=== PATIENT | female | born 1990 | race Caucasian/White ===

== ENCOUNTER 2023-02-22 07:55 | Inpatient (IN) ==
[2023-02-22] MEDS ORDERED: LIDOCAINE 1% LOCAL 20 ML VIAL INFIL PRN (08:06)
[2023-02-22] MEDS ORDERED: OXYTOCIN 30 UNITS/500 ML BAG IV PRN ×2 (08:06→08:07)
[2023-02-22] MEDS: LACTATED RINGER'S 1,000 ML IV PRN ×2 (09:24→13:55)
--- NOTE | 2023-02-22 09:38 | Labor Progress Brief Note ---
Date of Service February 22, 2023 Subjective 32yo at 39w6d for IOL due to A2GDM. No OB c/o this morning. Assessment & Plan (1) Insulin controlled gestational diabetes mellitus (GDM) during : Plan: Will check FSBG Q2h, can initiate insulin protocol prn results >130. IOL with pitocin, epidural on request, AROM when able. Admission and Anticipated Discharge Date Admission Date: February 22, 2023 Physical Exam Constitutional: WD/WN, vitals as above Eyes: PERRL, conjunctivae normal, anicteric sclerae ENMT: external ear and nose normal, oropharynx normal Neck: supple Respiratory: normal respiratory effort and able to speak in complete sentences; no respiratory distress Cardiovascular: Rate/Rhythm: regular rate and regular rhythm Extremities: + pedal edema Gastrointestinal (Abdomen): Gravid / AGA, nontender Musculoskeletal: no cyanosis or clubbing, extremities motor strength 5/5 Skin: no rashes, warm and dry Psychiatric: A+Ox3, euthymic affect Genitourinary: Speculum/Bimanual Exam: no vaginal lesions, no vaginal bleeding and uterus nontender OB Exam Abdomen: + vertex and + estimated weight (7) Manual OB Exam: + cervical dilation 3 cm, + cervical effacement 70%, + station -2 and + amniotic fluid (No leaking evident) OB Exam Monitor Tracing: + external FHT monitor used, + external uterine monitor used and + category I Lymphatic: no cervical or axillary lymphadenopathy Results & Data Vital Signs (Past 12 Hours) Vital Signs Temp Pulse Resp BP 02/22/23 08:23 98.6 F 110 H 18 130/75 02/22/23 08:09 110 H 130/75 Coding Level of Care Code None Diagnoses Insulin controlled gestational diabetes mellitus (GDM) during O24.414
[2023-02-22 10:05] LABS: Hemoglobin 13.1 g/dl (12.0-16.0); Mean Corpuscular Hemoglobin 28.6 pg (25.0-34.0); Mean Corpuscular Hgb Conc 33.6 g/dL (32.0-36.0); Mean Corpuscular Volume 85.2 fL (80.0-100.0); Mean Platelet Volume 9.6 fL (9.4-12.4); Platelet Count 307 K/uL (130-400); RDW Coefficient of Variation 15.1 % (11.5-14.5); RDW Standard Deviation 46.6 fL (36.4-46.3); Red Blood Count 4.58 M/uL (4.20-5.40); White Blood Count 6.05 K/ul (4.8-10.8)
[2023-02-22] MEDS ORDERED: fentaNYL citrate PF 100 MCG/2 ML VIAL ONE (12:47)
[2023-02-22] MEDS ORDERED: SODIUM CHLORIDE 0.9% PF INJ 10 ML VIAL ONE (12:47)
[2023-02-22] MEDS ORDERED: ePHEDrine sulfate 50 MG/ML AMP ONE (12:47)
[2023-02-22] MEDS ORDERED: LIDOCAINE 2%/EPINEPHRINE 1:200,000 20 ML PF ONE (12:47)
[2023-02-22] MEDS ORDERED: BUPIVACAINE 0.25% PF 30 ML VIAL ONE (12:47)
[2023-02-22] MEDS ORDERED: fentaNYL 2MCG/ML ROPIVACAINE 1.25MG/ML 100 ML BAG EPI ONE (12:48)
--- NOTE | 2023-02-22 13:07 | Anesthesiology Consultation ---
Date of Service February 22, 2023 Assessment & Plan Chart Review Chart Review: Acceptable Risk for Labor Epidural Consults Requested none ASA ASA2 Proposed Anesthesia Anesthesia Type: Labor Epidural Risk / Benefits Reviewed With: PT / POA / Parent / Guardian, Accepts Plan and Informed Consent Obtained History Height/Weight Height: 5 ft 6 in Weight: 94.347 kg Allergies Allergy/AdvReac Type Severity Reaction Status Date / Time No Known Allergies Allergy Verified 02/21/23 13:52 Medications Home Medications Medication Instructions Recorded Confirmed Last Taken prenat.vits,ector,vkm-roif-lokyx 1 tab PO DAILY 07/19/22 02/22/23 02/21/23 21:00 acetone (urine) test (Ketone Urine #50 ea 10/05/22 02/22/23 Unknown Test strips) blood sugar diagnostic (OneTouch #150 ea 10/05/22 02/22/23 Unknown Verio test strips) blood-glucose meter (OneTouch #1 ea 10/05/22 02/22/23 Unknown Verio Reflect Meter) lancets 33 gauge (OneTouch Delica #150 ea 10/05/22 02/22/23 Unknown Lancets) pen needle, diabetic 32 gauge x #100 ea 11/28/22 02/21/23 Unknown 5/32" (BD Ultra-Fine Avis Pen Needle) breast pump #1 ea 02/16/23 02/22/23 Unknown insulin NPH isoph U-100 human 100 28 unit subcut QPM 02/22/23 02/22/23 02/21/23 21:00 unit/mL (3 mL) subcutaneous pen (Novolin N FlexPen) Active Medications Generic Name Dose Route Start Last Admin Trade Name Freq PRN Reason Stop Dose Admin Lactated Ringer's 1,000 mls @ 125 mls/hr 02/22/23 08:06 02/22/23 09:24 Lr IV 02/24/23 08:05 125 mls/hr .Q8H PRN Administration L&D Protocol Protocol Oxytocin 30 units in 500 mls @ 11 mls/hr 02/22/23 08:07 02/22/23 12:00 Pitocin IV 03/24/23 08:06 0.66 units/hr .Q24H PRN 11 mls/hr Labor Induction/Augmentation Titration Protocol 0.66 UNITS/HR Past Medical History Medical History Dysmenorrhea History of chicken pox Migraine with aura Varicella vaccination Exercise / Class Metabolic Activity II 4-5 Yardwork/Stairs/Walk up hill Past Family History Family History Father Diabetes Mother Menorrhagia Sister Breast cyst Denies family history of Ovarian cancer Prostate cancer Myocardial infarction Breast cancer Colorectal cancer Past Surgical History Surgical History S/P appendectomy 2014 Past Anesthesia History No Hx of Anesthesia Complications and No Family Hx of Anesthesia Complications History of PONV No Hx of PONV and No Hx of Motion Sickness Social History Smoking Status: Never smoker Do You Dip or Chew Tobacco: No Hx Alcohol Use: No Hx Substance Use: No Physical Exam Vital Signs Last Vital Signs Temp 98.2 F 02/22/23 11:00 Pulse 75 02/22/23 12:34 Resp 18 02/22/23 11:00 BP 119/68 02/22/23 12:34 ENMT Mouth: no dentition abnormality Thyromental Distance: > or= 3.5 Finger Breadths Mallampati Class: II Neck normal visual inspection Respiratory normal respiratory effort Auscultation: lungs clear to auscultation bilaterally Cardiovascular Rate/Rhythm: regular rate and regular rhythm Testing Laboratory Results 02/22/23 08:15 02/22/23 02/22/23 11:17 09:39 POC Glucose 77 102 H
[2023-02-22] MEDS ORDERED: fentaNYL citrate PF 100 MCG/2 ML VIAL EPI STA (13:28)
[2023-02-22] MEDS ORDERED: SODIUM CHLORIDE 0.9% PF INJ 10 ML VIAL EPI STA (13:28)
[2023-02-22] MEDS ORDERED: SODIUM CHLORIDE 0.9% PF INJ 10 ML VIAL EPI PRN (13:28)
[2023-02-22] MEDS ORDERED: LIDOCAINE 2% MPF LOCAL 5 ML VIAL EPI PRN (13:28)
[2023-02-22] MEDS ORDERED: BUPIVACAINE 0.25% PF 30 ML VIAL EPI PRN (13:28)
[2023-02-22] MEDS ORDERED: diphenhydrAMINE 50 MG/ML VIAL IV PRN (13:28)
[2023-02-22] MEDS ORDERED: ONDANSETRON INJ 2 MG/ML 2 ML VIAL IV PRN (13:28)
[2023-02-22] MEDS ORDERED: fentaNYL citrate PF 100 MCG/2 ML VIAL EPI PRN (13:28)
[2023-02-22] MEDS ORDERED: NALBUPHINE HCL INJ 10 MG/ML AMP IV PRN (13:28)
[2023-02-22] MEDS ORDERED: BUPIVACAINE 0.25% PF 30 ML VIAL EPI STA (13:28)
[2023-02-22] MEDS ORDERED: NALOXONE HCL 1 MG in SODIUM CHLORIDE 0.9% 1,000 ML IV PRN (13:28)
[2023-02-22] MEDS ORDERED: ROPIVACAINE 0.5% PF 5 MG/ML 20 ML VIAL EPI PRN (13:28)
[2023-02-22] MEDS ORDERED: fentaNYL 2MCG/ML ROPIVACAINE 1.25MG/ML 100 ML BAG EPI PRN (13:28)
[2023-02-22] MEDS ORDERED: ePHEDrine sulfate 50 MG/ML AMP IV PRN (13:28)
[2023-02-22] MEDS ORDERED: NALOXONE HCL 0.4 MG/1 ML VIAL/CARP IV PRN (13:28)
[2023-02-22] MEDS ORDERED: LIDOCAINE 2%/EPINEPHRINE 1:200,000 20 ML PF EPI STA (13:28)
--- NOTE | 2023-02-22 14:37 | Obstetrical Progress Note ---
Date of Service <Ervin Cobian MD - Last Filed: 02/23/23 06:54> February 22, 2023 Assessment & Plan <Ervin Cobian MD - Last Filed: 02/23/23 06:54> (1) Vaginal delivery: Plan 32 yo , status post vaginal delivery, of on 02/22/23, 2nd deg LAC - Pt doing well clinically. Feels well today. Eating well, voiding well, ambulating well. Pain well controlled with PRN pain meds. - Routine care -- OOB, ambulation, diet progression as tolerated Vital Signs reviewed and WNL. (Tmax at 36.7) except as noted: BP 97/62 early this morning post-delivery. Hemoglobin Reviewed. 13.1 (02/22/23) pending (today). Blood Type: A+, GBS-, Rubella Immune. Encourage ambulation, monitor and control pain with Motrin PRN, resume regular diet, monitor lochia. Breast feeding encouraged. After discharge will have 6 week follow-up with Dr. Red. <Kelsi Red MD - Last Filed: 02/23/23 07:01> (1) Vaginal delivery: Subjective <Ervin Cobian MD - Last Filed: 02/23/23 06:54> Ambulation: ambulating normally Voiding: no voiding problems Passing Gas:: Yes Diet Tolerance:: regular diet Lochia:: Small (light to moderate) Feeding Type:: breast feeding Current Pain Level(1-10): 7 (perineal region pain) Constitutional: + fatigue; no fever or no chills Respiratory: no cough or no dyspnea Cardiovascular: no chest pain or no palpitations Gastrointestinal: + constipation (has not had BM); no nausea, no vomiting or no diarrhea/loose stools Musculoskeletal: no myalgia Physical Exam <Ervin Cobian MD - Last Filed: 02/23/23 06:54> Respiratory normal respiratory effort, lungs clear to auscultation Cardiovascular RRR, no murmur, no edema Gastrointestinal (Abdomen) normal bowel sounds, soft, nontender, no hepatosplenomegaly Musculoskeletal Extremities: extremities normal to inspection (no calf pain or tenderness) Results & Data <Ervin Cobian MD - Last Filed: 02/23/23 06:54> Vital Signs (Past 12 Hours) Vital Signs Temp Pulse Resp BP Pulse Ox 02/22/23 08:23 37.0 C 110 H 18 130/75 02/22/23 14:30 73 99 02/22/23 14:25 77 100 02/22/23 14:23 78 113/53 L 02/22/23 14:20 79 99 02/22/23 14:18 73 109/62 02/22/23 14:15 71 98 02/22/23 14:13 91 H 108/58 L 02/22/23 14:10 80 100 02/22/23 14:07 76 106/55 L 02/22/23 14:05 77 100 02/22/23 14:04 78 110/61 02/22/23 14:00 72 100 02/22/23 13:58 71 111/67 02/22/23 13:55 73 100 02/22/23 13:52 81 110/60 02/22/23 13:50 76 100 02/22/23 13:48 71 108/57 L 02/22/23 13:45 88 100 02/22/23 13:43 85 113/61 02/22/23 13:40 100 02/22/23 13:40 76 02/22/23 13:40 77 103/56 L 02/22/23 13:35 94 H 100 02/22/23 13:32 75 110/57 L 02/22/23 13:30 81 112/56 L 100 02/22/23 13:28 86 118/53 L 02/22/23 13:26 80 114/58 L 02/22/23 13:25 80 100 02/22/23 13:20 74 100 02/22/23 13:15 78 100 02/22/23 13:10 84 100 02/22/23 13:05 70 100 02/22/23 12:34 75 02/22/23 12:34 119/68 02/22/23 12:34 78 118/74 02/22/23 11:35 75 116/61 02/22/23 11:00 18 02/22/23 11:00 36.8 C 18 02/22/23 10:34 78 123/71 02/22/23 09:34 84 124/76 02/22/23 08:09 37.0 C 110 H 18 130/75 <Kelsi Red MD - Last Filed: 02/23/23 07:01> Co-Signing Physician Notes Resident Physician Supervision Note: I interviewed and examined the patient. Discussed with Dr. Cobian and agree with findings and plan as documented in the note. Any exceptions or clarifications are listed here: [ ] Documented By: Kelsi Red MD, FACOG
[2023-02-22] MEDS ORDERED: Nursing to Pharmacy Communication SCH ×2 (14:45→22:45)
[2023-02-22] MEDS ORDERED: HYDROCORTISONE ACETATE 25 MG SUPP PR PRN (19:13)
[2023-02-22] MEDS ORDERED: bisacodyL 10 MG SUPP PR PRN (19:13)
[2023-02-22] MEDS ORDERED: DIPHTHERIA/TETANUS/PERTUSSIS Vaccine (Tdap, Age 7+yrs) 0.5mL SYR/VL IM ONE (19:13)
[2023-02-22] MEDS ORDERED: ACETAMINOPHEN 325 MG TAB PO PRN (19:13)
[2023-02-22] MEDS ORDERED: BENZOCAINE 20% SPRY 85 APPLN/85 GM CAN EXT PRN (19:13)
--- NOTE | 2023-02-22 19:15 | Delivery Summary ---
Vaginal Delivery Summary Date of Service February 22, 2023 Vaginal Delivery Summary DIAGNOSES: 1. Woodward intrauterine at 39w6d gestation. 2. Induction of labor due to A2GDM. 3. Group B Streptococcus Neg. PROCEDURE: Spontaneous vaginal delivery and repair of second degree laceration. SURGEON: Kelsi Red MD. PLATING INSPECTOR: None. ESTIMATED BLOOD LOSS: 300 mL. COMPLICATIONS: None. PLACENTA: Spontaneous and intact with a 3-vessel cord. DISPOSITION: Stable to labor and delivery. DESCRIPTION: The patient pushed well and brought the head to in OA position. The 's head was allowed to deliver with contraction force and no further active pushing, with the perineum protected during this time. There was no nuchal cord. The right shoulder was anterior. The shoulders and body delivered without any difficulty, and the was placed on the maternal abdomen. It was vigorous and moving all extremities, and making respiratory efforts. The cord was doubly clamped by the MD and then cut by the FOB. The placenta delivered spontaneously and was noted to be intact and with a 3VC. The cervix, vagina and perineum were examined and were found to have a second degree laceration which was repaired in the usual manner using vicryl suture and including crown stitches to rebuild the perineal body. The fundus was firm and lochia minimal immediately after delivery. [facility] Vaginal Delivery Charge Vaginal Delivery Codes: 46216 global code for the antepartum, delivery, and post-
--- NOTE | 2023-02-22 19:44 | Anesthesia Procedure Note ---
Date of Service February 22, 2023 Anesthesia Post Epidural Note Vital Signs Vital Signs: Temp Pulse Resp BP Pulse Ox 97.9 F 100 H 18 117/68 90 02/22/23 17:00 02/22/23 19:23 02/22/23 19:23 02/22/23 19:23 02/22/23 18:53 Pain Intensity Back: Pain Intensity: 4 Notes Mental Status: alert / awake / arousable and participated in evaluation Nausea / Vomiting: adequately controlled Pain: adequately controlled Airway Patency, RR, SpO2: stable & adequate BP & HR: stable & adequate Hydration State: stable & adequate Neuraxial Anesthesia: was administered and sensory block is resolving Anesthetic Complications: no major complications apparent and Pt Satisfied with anesthetic care Epidural: Removed without complications and With tip intact
[2023-02-22] MEDS ORDERED: DOCUSATE SODIUM 100 MG CAP PO SCH (21:00)
[2023-02-22] MEDS: IBUPROFEN 600 MG TAB PO PRN (21:37)
[2023-02-23 06:16] LABS: Hematocrit (blood only) 33.2 % (37.0-47.0); Hemoglobin 11.5 g/dl (12.0-16.0); Mean Corpuscular Hemoglobin 28.9 pg (25.0-34.0); Mean Corpuscular Hgb Conc 34.6 g/dL (32.0-36.0); Mean Corpuscular Volume 83.4 fL (80.0-100.0); Mean Platelet Volume 9.4 fL (9.4-12.4); Platelet Count 272 K/uL (130-400); RDW Coefficient of Variation 15.2 % (11.5-14.5); RDW Standard Deviation 45.4 fL (36.4-46.3); Red Blood Count 3.98 M/uL (4.20-5.40); White Blood Count 8.83 K/ul (4.8-10.8)
[2023-02-23] MEDS: IBUPROFEN 600 MG TAB PO PRN ×2 (06:45→14:41)
[2023-02-23] MEDS: PRENATAL VITAMIN 1 TAB PO SCH (10:22)
[2023-02-23] MEDS: oxyCODONE/ACETAMINOPHEN 5mg/325mg TAB PO PRN ×2 (10:22→19:21)
[2023-02-23] MEDS: DOCUSATE SODIUM SYRUP 100 MG/10 ML UDC PO SCH ×2 (10:24→19:22)
[2023-02-23] MEDS ORDERED: bisacodyL 5 MG TABEC PO SCH (20:00)
--- NOTE | 2023-02-23 20:29 | Obstetrical Progress Note ---
Date of Service <Ervin Cobian MD - Last Filed: 02/24/23 07:48> February 23, 2023 Assessment & Plan <Ervin Cobian MD - Last Filed: 02/24/23 07:48> (1) Vaginal delivery: Plan 32 yo , status post vaginal delivery, of on 02/22/23, 2nd deg LAC --> perineal pain better controlled today with Motrin - Pt doing well clinically. Feels well today. Eating well, voiding well, ambulating well. Pain well controlled with PRN pain meds. - Routine care -- OOB, ambulation, diet progression as tolerated Vital Signs reviewed and WNL. (Tmax at 36.7) except as noted: BP 97/62 early this morning post-delivery. Hemoglobin Reviewed. 13.1 (02/22/23) 10.4 (today). Blood Type: A+, GBS-, Rubella Immune. Encourage ambulation, monitor and control pain with Motrin PRN, resume regular diet, monitor lochia. Breast feeding encouraged. After discharge will have 6 week follow-up with Dr. Red. <Shelby Del Valle MD, FACOG - Last Filed: 02/24/23 07:50> (1) Vaginal delivery: Subjective <rEvin Cobian MD - Last Filed: 02/24/23 07:48> Ambulation: ambulating normally Voiding: no voiding problems Passing Gas:: Yes Diet Tolerance:: regular diet Lochia:: Moderate Feeding Type:: breast feeding Current Pain Level(1-10): 3 (sharp perineal pain, cramping pain while feeding) Constitutional: + fatigue; no fever or no chills Respiratory: no cough or no dyspnea Cardiovascular: no chest pain or no palpitations Gastrointestinal: + constipation (has not had BM); no nausea, no vomiting or no diarrhea/loose stools Musculoskeletal: no myalgia Physical Exam <Ervin Cobian MD - Last Filed: 02/24/23 07:48> Respiratory normal respiratory effort, lungs clear to auscultation Cardiovascular RRR, no murmur, no edema Gastrointestinal (Abdomen) normal bowel sounds, soft, nontender, no hepatosplenomegaly Musculoskeletal Extremities: extremities normal to inspection (no calf pain or tenderness) Results & Data <Ervin Cobian MD - Last Filed: 02/24/23 07:48> Vital Signs (Past 12 Hours) Vital Signs Temp Pulse Resp BP Pulse Ox O2 Del Method 02/23/23 17:40 36.7 C 97 H 14 118/87 100 Room Air 02/23/23 13:06 37.0 C 95 H 14 118/74 100 Room Air 02/23/23 10:20 36.8 C 97 H 14 112/66 99 Room Air <Shelby Del Valle MD, FACOG - Last Filed: 02/24/23 07:50> Co-Signing Physician Notes Resident Physician Supervision Note: I was present with Dr. Baxter during the history and exam. I discussed the case with the resident and agree with the findings and plan as documented in the note. Any exceptions or clarifications are listed here: [None] Documented By: Shelby Del Valle MD, FACOG
[2023-02-24] MEDS: IBUPROFEN 600 MG TAB PO PRN ×3 (03:01→13:59)
[2023-02-24 06:50] LABS: Hematocrit (blood only) 30.9 % (37.0-47.0); Hemoglobin 10.4 g/dl (12.0-16.0)
[2023-02-24] MEDS: PRENATAL VITAMIN 1 TAB PO SCH (08:47)
[2023-02-24] MEDS: DOCUSATE SODIUM SYRUP 100 MG/10 ML UDC PO SCH (08:47)
== END 2023-02-24 15:13 | disposition home or self-care (01) | DRG 807 ==
LOC: 4S1 07:55 → 4E2 22:21